=== PATIENT | female | born 1995 ===

== ENCOUNTER 2017-02-21 14:19 | Emergency (ER) | payer OTHER ==
[2017-02-21 14:19] VITALS: BMI 19.1
[2017-02-21 14:32] VITALS: BP 106/69; PULSE 80; RESP 16; TEMP 98.3; O2SAT 100
--- NOTE | 2017-02-21 15:15 | C.PDOC ---
History Of Present Illness Suellen Silva is a 22 year old female who presents to the emergency department for suture removal to the left wrist after an accidental laceration washing dishes on 03/16/17. Patient denies any fever, chills, nausea or vomit. No further medical complaints. PMD: None provided. Time Seen by Provider: 02/21/17 15:00 Chief Complaint (Nursing): Suture/Staple Removal History Per: Patient History/Exam Limitations: no limitations Onset/Duration Of Symptoms: Days (x1 week) Current Symptoms Are (Timing): Still Present Location Of Injury: Left: Wrist Past Medical History Reviewed: Historical Data, Nursing Documentation, Vital Signs Vital Signs: Last Vital Signs Temp 98.3 F 02/21/17 14:30 Pulse 80 02/21/17 14:30 Resp 16 02/21/17 14:30 BP 106/69 02/21/17 14:30 Pulse Ox 100 02/21/17 15:15 - Medical History PMH: Anemia Family History: States: Unknown Family Hx - Social History Hx Tobacco Use: No Hx Alcohol Use: Yes Hx Substance Use: No - Immunization History Hx Tetanus Toxoid Vaccination: Yes (4 yrs ago) Hx Influenza Vaccination: No Hx Pneumococcal Vaccination: No Review Of Systems Constitutional: Negative for: Fever, Chills Gastrointestinal: Negative for: Nausea, Vomiting Musculoskeletal: Positive for: Other (suture removal to the left wrist) Physical Exam - Physical Exam Appears: Well, No Acute Distress Skin: Normal Color, Warm, Dry Eye(s): bilateral: Normal Inspection Neck: Normal, Normal ROM, Supple Respiratory: Normal Breath Sounds Extremity: Normal ROM, Other (Left dorsal ventral wrist 5 cm laceration. Healed , clean, dry and intact. Neurovascular exam left hand normal) Neurological/Psych: Normal Speech, Normal Motor, Normal Sensation ED Course And Treatment O2 Sat by Pulse Oximetry: 100 (RA) Pulse Ox Interpretation: Normal Progress Note: 4 interrupted sutures removed from lac repair 03/16. nicely healed, normal distal neuromuscular exam. Disposition Doctor Will See Patient In The: Office Counseled Patient/Family Regarding: Studies Performed, Diagnosis - Disposition Referrals: [facility] [Outside] [facility] [employer] [facility] [Outside] Disposition: HOME/ ROUTINE Disposition Time: 15:14 Condition: GOOD Additional Instructions: continue daily soap and water cleansing. no further bandages after tomorrow 4 sutures removed. Instructions: Stitches Removal (ED) Forms: [employer] (Spanish) - Clinical Impression Clinical Impression: Removal of suture - Scribe Statement The provider has reviewed the documentation as recorded by the Alonaibbushra Lind Provider Attestation: All medical record entries made by the Alonaibe were at my direction and personally dictated by me. I have reviewed the chart and agree that the record accurately reflects my personal performance of the history, physical exam, medical decision making, and the department course for this patient. I have also personally directed, reviewed, and agree with the discharge instructions and disposition.
[2017-02-21] MEDS ORDERED: Bacitracin 500 Units/gm Oint Foilpak UD ONE (15:17)
== END 2017-02-21 15:19 | disposition home or self-care (01) ==
LOC: C.ER 14:19
DX: Z48.02 Encounter for removal of sutures (principal)

== ENCOUNTER 2017-07-21 11:13 | Emergency (ER) | payer BC ==
[2017-07-21 11:13] VITALS: BMI 19.1
[2017-07-21 11:33] VITALS: RESP 20; O2SAT 100
[2017-07-21 12:21] LABS: BASO % 0.3 % (0.0-2.0); EOS # 0.1 K/uL (0.0-0.7); EOS % 1.2 % (0.0-4.0); HEMOGLOBIN 12.2 g/dL (11.0-16.0); LYMPH # 1.7 K/uL (1.0-4.3); LYMPH % 22.8 % (20.0-40.0); MEAN CELL VOLUME 91.4 fL (81.0-99.0); MEAN CORPUSCULAR HEMOGLOBIN 31.2 pg (27.0-31.0); MEAN CORPUSCULAR HGB CONC 34.1 g/dL (33.0-37.0); MEAN PLATELET VOLUME 8.3 fL (7.2-11.7); MONO # 0.5 K/uL (0.0-0.8); MONO % 7.4 % (0.0-10.0); NEUT # 5.1 K/uL (1.8-7.0); NEUT % 68.3 % (50.0-75.0); RBC 3.9 Mil/uL (3.80-5.20); RED CELL DISTRIBUTION WIDTH 14.4 % (11.5-14.5); WHITE BLOOD COUNT 7.4 K/uL (4.8-10.8)
[2017-07-21 12:23] LABS: HCG,QUALITATIVE URINE POSITIVE (NEGATIVE)
[2017-07-21 12:28] LABS: SQUAMOUS EPITHIAL 1 /hpf (0-5); URINE BILIRUBIN NEGATIVE (NEGATIVE); URINE BLOOD NEGATIVE (NEGATIVE); URINE CLARITY Hazy (Clear); URINE COLOR Yellow (YELLOW); URINE GLUCOSE (UA) NORMAL (Normal); URINE LEUKOCYTE ESTERASE NEG Leu/uL (Negative); URINE NITRATE NEGATIVE (NEGATIVE); URINE PROTEIN NEGATIVE (NEGATIVE); URINE UROBILINOGEN NORMAL mg/dL (0.2-1.0)
--- NOTE | 2017-07-21 12:33 | C.PDOC ---
History Of Present Illness 22 y/o female, 16 weeks (), presents to the ER for evaluation of suprapubic heaviness and right flank pain which developed since yesterday. Patient states that the pain is intermittent and worse with movement and ambulation.Otherwise, patient denies fever, chills, recent illness, CP, SOB, dyspnea, diaphoresis, palpitation, vomiting, diarrhea, UTI symptoms , hematuria , vaginal bleeding or discharges. Ambulate to ED for evaluation, not in nay apparent distress. Pt admits, (+) care, no known complication during current . Time Seen by Provider: 07/21/17 11:31 Chief Complaint (Nursing): Abdominal Pain History Per: Patient History/Exam Limitations: no limitations Onset/Duration Of Symptoms: Days Severity: Moderate Associated Symptoms: denies: Fever, Chills, Vomiting, Diarrhea, Urinary Symptoms Past Medical History Reviewed: Historical Data, Nursing Documentation, Vital Signs Vital Signs: Last Vital Signs Temp 99.1 F 07/21/17 11:30 Pulse 97 H 07/21/17 11:30 Resp 20 07/21/17 11:30 BP 104/69 07/21/17 11:30 Pulse Ox 100 07/21/17 12:40 - Medical History PMH: Anemia Surgical History: No Surg Hx Family History: States: No Known Family Hx - Social History Hx Tobacco Use: No Hx Alcohol Use: No Hx Substance Use: No - Immunization History Hx Tetanus Toxoid Vaccination: Yes (4 yrs ago) Hx Influenza Vaccination: Yes (04/2017) Hx Pneumococcal Vaccination: No Review Of Systems Except As Marked, All Systems Reviewed And Found Negative. Constitutional: Negative for: Fever, Chills Gastrointestinal: Positive for: Abdominal Pain. Negative for: Vomiting, Diarrhea Genitourinary: Negative for: Dysuria, Hematuria, Vaginal Bleeding Physical Exam - Physical Exam Appears: Non-toxic, No Acute Distress Skin: Normal Color, Warm Head: Normacephalic Eye(s): bilateral: PERRL Nose: No Flaring, No Discharge Oral Mucosa: Moist Throat: No Erythema, No Drooling Neck: Trachea Midline, Supple Chest: Symmetrical Cardiovascular: Rhythm Regular, No Murmur, No JVD Respiratory: No Accessory Muscle Use, No Rales, No Rhonchi, No Stridor, No Wheezing Gastrointestinal/Abdominal: Soft, Tenderness (mild suprapubic tenderness), No Distention, No Guarding, No Rebound Back: No CVA Tenderness Extremity: Normal ROM, No Pedal Edema, No Deformity, No Swelling Neurological/Psych: Oriented x3, Normal Speech, Normal Motor, Normal Sensation ED Course And Treatment - Laboratory Results Result Diagrams: 07/21/17 12:11 Lab Interpretation: Normal Urine POC: Positive O2 Sat by Pulse Oximetry: 100 (RA) Pulse Ox Interpretation: Normal - CT Scan/US OB US Other Rad Studies (CT/US): Radiology Report Reviewed CT/US Interpretation: Findings: There is a single living fetus in breech presentation. Anterior placenta. The placenta is not previa. The right ovary measures approximately 3.3 x 2.0 x 2.6 cm. The left ovary measures approximately 4.4 x 1.5 x 3.6 cm. Blood flow is demonstrated to both ovaries. Cervix length measures approximately 3.4 cm. Measurements and calculations: Fetus has a composite sonographic age of 15 weeks 0 days. This calculation is based on the biparietal diameter, head circumference, abdominal circumference, and femur length. Estimated heart rate 132.3 beats per min. Impression: Single living fetus with a composite sonographic age of 15 weeks 0 days. Estimated heart rate 132.3 beats per min. The study was performed for the emergent evaluation of pain, and the whole anatomic survey of the fetus was not performed. Visualized anatomy appears grossly unremarkable. Advise an outpatient anomaly screen at 16-18 weeks gestational age. Progress Note: Labs and UA ordered. Transvaginal US ordered. Pt was OBS in ED for 3 hours and remained stable. On re-evalution, pt is afebrile, hemodynamicaly stable. Non-toxic. Neck: Supple, (-) JVD, (-) carotid bruits B/ L. ENT: No acute findings. Lungs: CTA B/L, BS equal B/L. CVS: (+)S1S2, reg. Abd: benign, (-) gaurding, (-) rebound. Back: (-) CVA tenderness. Blood work review and appears normal. UA- normal study. Blood type: O positive. US results review: anterior placenta, otherwise, no other acute findings. SIngle living fetus 15 wks. FHR 132/min. results review and discussed with patient. Pt have clinical findings c/w threatened miscarriage. Pt advised. Pt ref. to f /u with OB in 1-2 days for re-evaluation. Return to Ed if any worsening or new changes Disposition Counseled Patient/Family Regarding: Studies Performed, Diagnosis, Need For Followup - Disposition Referrals: Yadira Bond MD [Staff Provider] - Disposition: HOME/ ROUTINE Disposition Time: 14:04 Condition: STABLE Additional Instructions: Pelvic rest for 1 week, no sexual activity for 1 week Follow up with OB in 1-2 days for re-evaluation. Return to ED at any time if worsening of abdominal pain, vaginal bleeding or any other new changes. Instructions: Threatened Miscarriage Forms: [employer] (Wolof) - Clinical Impression Clinical Impression: Threatened miscarriage - PA / PHARMACY TECHNICIAN INFUSION / Resident Statement MD/DO has reviewed & agrees with the documentation as recorded. - Scribe Statement The provider has reviewed the documentation as recorded by the Scribe Marylu Monet Provider Attestation All medical record entries made by the Scribe were at my direction and personally dictated by me. I have reviewed the chart and agree that the record accurately reflects my personal performance of the history, physical exam, medical decision making, and the department course for this patient. I have also personally directed, reviewed, and agree with the discharge instructions and disposition.
--- NOTE | 2017-07-21 13:05 | US ---
Indication: Suprapubic pain Comparison: None available. Technique: Real-time ultrasound was performed through the pelvis. Findings: There is a single living fetus in breech presentation. Anterior placenta. The placenta is not previa. The right ovary measures approximately 3.3 x 2.0 x 2.6 cm. The left ovary measures approximately 4.4 x 1.5 x 3.6 cm. Blood flow is demonstrated to both ovaries. Cervix length measures approximately 3.4 cm. Measurements and calculations: Fetus has a composite sonographic age of 15 weeks 0 days. This calculation is based on the biparietal diameter, head circumference, abdominal circumference, and femur length. Estimated heart rate 132.3 beats per min. Impression: Single living fetus with a composite sonographic age of 15 weeks 0 days. Estimated heart rate 132.3 beats per min. The study was performed for the emergent evaluation of pain, and the whole anatomic survey of the fetus was not performed. Visualized anatomy appears grossly unremarkable. Advise an outpatient anomaly screen at 16-18 weeks gestational age.
[2017-07-21 15:25] VITALS: BP 98/56; PULSE 84; TEMP 98.2
== END 2017-07-21 15:24 | disposition home or self-care (01) ==
LOC: C.ER 11:13
DX: O20.0 Threatened abortion (principal); Z3A.15 15 weeks gestation of pregnancy

== ENCOUNTER 2017-10-23 00:48 | Emergency (ER) | payer SELFPAY ==
[2017-10-23] MEDS ORDERED: Lactated Ringer's 1,000 ML IV ONE (02:15)
--- NOTE | 2017-10-23 02:29 | OBHP ---
Datetime: 10/23/2017 02:17 IP Adm Impression: , intrauterine IP Admit Plan: Observation/Evaluation Admit Comment, IP Provider: 22yo edc 01/07 by lmp _ 1st trim us presents w/ c/o yellowish dis charge per vagina, vaginal and pelvic pressure, abd tightness _ back pain x2 2days. Last episode of c oitus 3days ago. pt denies srom, vag bleeding or decreased fm. pt see Dr Bond but because insuran ce issues has not seen her in 8wks. pmhx_ pshx: denies nkda medic: pnv shc: denies tobacco,etoh, or durg use i: 29.1wk vulvovaginal candidiasis p: ua ivf hydration pt may take monistat 7 f/u for visit ruben Pelvic Type - PN: Adequate Extremities - PN: Normal Abdomen - PN: Normal Back - PN: Normal Lungs - PN: Normal Heart - PN: Normal Neurologic - PN: Normal HEENT - PN: Normal General - PN: Normal FHR - Baseline A Provider: 130 Membranes, Provider: Intact Comments, ACOG Physical Exam: sse: yellowcurd dc Pool Provider: Negative Nitrazine Provider: Negative EGA AdmitDate IP: 29.1 IP Chief Complaint: Maternal discomfort; Other NICHD Variability Prov Fetus A: Moderate 6-25bpm NICHD Accel Fetus A IP Provider: 15X15 FHR Category Provider Fetus A: Category I Dilatation, Provider: 0 Effacement, Provider: 0 Station, Provider: high Genitourinary Exam: Normal
[2017-10-23 03:12] LABS: SQUAMOUS EPITHIAL 1 /hpf (0-5); URINE AMORPHOUS SEDIMENT OCC /ul (<OCC); URINE BILIRUBIN NEGATIVE (NEGATIVE); URINE BLOOD NEGATIVE (NEGATIVE); URINE CLARITY Hazy (Clear); URINE COLOR Yellow (YELLOW); URINE GLUCOSE (UA) NORMAL (Normal); URINE LEUKOCYTE ESTERASE TRACE Leu/uL (Negative); URINE PROTEIN NEGATIVE (NEGATIVE); URINE UROBILINOGEN NORMAL mg/dL (0.2-1.0)
[2017-10-23 07:20] VITALS: BP 90/49; PULSE 62
== END 2017-10-23 03:18 | disposition home or self-care (01) ==
LOC: C.EROB 00:48
DX: O98.813 Other maternal infectious and parasitic diseases complicating pregnancy, third trimester (principal); B37.3 Candidiasis of vulva and vagina; Z3A.29 29 weeks gestation of pregnancy
CPT/HCPCS: 81001; 99283; J7120

== ENCOUNTER 2017-12-31 05:06 | Inpatient (IN) | payer MEDICAID, OTHER ==
--- NOTE | 2017-12-31 07:19 | OBHP ---
Datetime: 12/31/2017 07:15 IP Adm Impression: Term, intrauterine IP Admit Plan: Initiate labor induction protocol Admit Comment, IP Provider: 21 y/o at 39 wks for induction of labor. Pt has no complaints today . Pt will be admitted to Dr Smith service for IOL. Pelvic Type - PN: Adequate Extremities - PN: Normal Abdomen - PN: Normal Back - PN: Normal Breast - PN: Normal Lungs - PN: Normal Heart - PN: Normal Thyroid - PN: Normal Neurologic - PN: Normal HEENT - PN: Normal General - PN: Normal FHR - Baseline A Provider: 130 Membranes, Provider: Ruptured EGA AdmitDate IP: 39.0 IP Chief Complaint: Scheduled induction of labor NICHD Variability Prov Fetus A: Minimal - Undetectable to <5bpm NICHD Accel Fetus A IP Provider: 15X15 NICHD Decel Fetus A IP Provider: None Genitourinary Exam: Normal DTRs - PN: Normal Datetime: 10/23/2017 02:17 Contraction Comments Provider: no
[2017-12-31] MEDS: Lactated Ringer's 1,000 ML IV SCH (08:00)
--- NOTE | 2017-12-31 08:09 | OBADHP ---
Datetime: 12/31/2017 07:15 Admit Comment, IP Provider: 21 y/o at 39 wks for induction of labor. c/o ctxs irrg, no vb,no lo f,+fm obhx orimi pmh de med pnv all nkda psh de soch ve 2-3/70/-2 a/p at 39weeks in early labor admit to l_d npo/ivf labs cont marcela and efm cytotec anticipate Pelvic Type - PN: Adequate Extremities - PN: Normal Abdomen - PN: Normal Back - PN: Normal Breast - PN: Normal Lungs - PN: Normal Heart - PN: Normal Thyroid - PN: Normal Neurologic - PN: Normal HEENT - PN: Normal General - PN: Normal FHR - Baseline A Provider: 130 Membranes, Provider: Ruptured IP Hx Assessment: The History has been Reviewed and is Current IP Chief Complaint: Uterine contractions; Scheduled induction of labor NICHD Variability Prov Fetus A: Minimal - Undetectable to <5bpm NICHD Accel Fetus A IP Provider: 15X15 NICHD Decel Fetus A IP Provider: None Genitourinary Exam: Normal DTRs - PN: Normal EGA AdmitDate IP: 39.0 IP Adm Impression: Term, intrauterine IP Admit Plan: Admit to unit; Initiate labor induction protocol Datetime: 10/23/2017 02:17 Contraction Comments Provider: no Comments, ACOG Physical Exam: sse: yellowcurd dc Pool Provider: Negative Nitrazine Provider: Negative FHR Category Provider Fetus A: Category I Dilatation, Provider: 0 Effacement, Provider: 0 Station, Provider: high
[2017-12-31 08:57] LABS: BASO % 0.2 % (0.0-2.0); EOS # 0.1 K/uL (0.0-0.7); HEMOGLOBIN 12.2 g/dL (11.0-16.0); LYMPH # 1.7 K/uL (1.0-4.3); LYMPH % 22.1 % (20.0-40.0); MEAN CELL VOLUME 91.6 fL (81.0-99.0); MEAN CORPUSCULAR HEMOGLOBIN 31.5 pg (27.0-31.0); MEAN CORPUSCULAR HGB CONC 34.4 g/dL (33.0-37.0); MEAN PLATELET VOLUME 9.7 fL (7.2-11.7); MONO # 0.7 K/uL (0.0-0.8); MONO % 9.4 % (0.0-10.0); NEUT # 5.3 K/uL (1.8-7.0); NEUT % 67.3 % (50.0-75.0); NRBC % 0.1 % (0.0-2.0); RBC 3.87 Mil/uL (3.80-5.20); RED CELL DISTRIBUTION WIDTH 12.4 % (11.5-14.5); WHITE BLOOD COUNT 7.9 K/uL (4.8-10.8)
[2017-12-31] MEDS ORDERED: Oxytocin 30 UNIT 30 UNITS/500 ML BAG IV ONE ×2 (12:55→19:46)
[2017-12-31] MEDS ORDERED: Oxytocin 30 UNIT 30 UNITS/500 ML BAG IV SCH (13:00)
--- NOTE | 2017-12-31 13:10 | OBPN ---
Datetime: 12/31/2017 13:06 IP Progress Impression: Normal progression of labor IP Procedures: Artificial ROM; Sterile Vag Exam IP Progress Plan: Continue present management FHR - Baseline A Provider: 130 IP Progress Note Comment: p was examined at bed side ve /2 srom cont piocin anicipate NICHD Accel Fetus A IP Provider: 15X15 FHR Category Provider Fetus A: Category I NICHD Variability Prov Fetus A: Moderate 6-25bpm Dilatation, Provider: 4 Effacement, Provider: 70 Station, Provider: -2 Datetime: 12/31/2017 07:15 Membranes, Provider: Ruptured NICHD Decel Fetus A IP Provider: None Datetime: 10/23/2017 02:17 Pool Provider: Negative Nitrazine Provider: Negative Contraction Comments Provider: no
[2017-12-31] MEDS ORDERED: Bupivacaine HCl/FentaNYL Cit 100 ML EPI ONE (14:00)
[2017-12-31] MEDS ORDERED: Lidocaine 2% MPF (5 ml) Inj ONE ×2 (19:39→19:40)
[2017-12-31] MEDS ORDERED: Benzocaine/Menthol 20%-0.5% Topical Spray (60 ml) TOP PRN (19:46)
[2017-12-31] MEDS ORDERED: Oxycodone/Acetaminophen 5/325 mg Tab PO PRN (19:46)
[2017-12-31] MEDS ORDERED: Tdap Vaccine 0.5 ml Vial (10-64 yrs) IM ONE (19:50)
--- NOTE | 2017-12-31 19:52 | OBPN ---
Datetime: 12/31/2017 19:49 IP Progress Impression: Normal progression of labor IP Procedures: Sterile Vag Exam FHR - Baseline A Provider: 130 IP Progress Note Comment: pt was sen at bed side ve fd/100/+1 stsrt pushing anticipate Vital Signs Provider: Reviewed; Within Normal Limits NICHD Accel Fetus A IP Provider: 15X15 FHR Category Provider Fetus A: Category I NICHD Variability Prov Fetus A: Moderate 6-25bpm Dilatation, Provider: 10 Effacement, Provider: 100 Station, Provider: 2
[2017-12-31] MEDS: Oxycodone/Acetaminophen 5/325 mg Tab PO PRN (23:12)
[2018-01-01] MEDS: Lactated Ringer's 1,000 ML IV SCH (00:58)
--- NOTE | 2018-01-01 06:38 | OBPPN ---
Datetime: 01/01/2018 06:37 PP Pain Prov: Within normal limits PP Nausea Prov: Denies PP Flatus Prov: Yes PP Abdomen/Uterus Prov: Normal PP Lochia Prov: Normal PP Extremities Prov: Normal PP Progress Note Prov: pt was seen at bed side, pain under control,no n/v, toleratimg dei,voiding,mi n lochia, flatus+ ppd#1 s/p cont pnc cont paim cot pp care Vital Signs Provider PP: Reviewed; Within Normal Limits
[2018-01-01] MEDS: Oxycodone/Acetaminophen 5/325 mg Tab PO PRN (18:18)
[2018-01-01 21:28] LABS: BASO % 0.3 % (0.0-2.0); EOS # 0.1 K/uL (0.0-0.7); EOS % 1.1 % (0.0-4.0); HEMOGLOBIN 11.5 g/dL (11.0-16.0); LYMPH # 3.3 K/uL (1.0-4.3); LYMPH % 28.5 % (20.0-40.0); MEAN CELL VOLUME 91.5 fL (81.0-99.0); MEAN CORPUSCULAR HGB CONC 33.8 g/dL (33.0-37.0); MEAN PLATELET VOLUME 9.1 fL (7.2-11.7); MONO % 8.8 % (0.0-10.0); NEUT % 61.3 % (50.0-75.0); NRBC % 0.2 % (0.0-2.0); RBC 3.73 Mil/uL (3.80-5.20); RED CELL DISTRIBUTION WIDTH 12.6 % (11.5-14.5); WHITE BLOOD COUNT 11.4 K/uL (4.8-10.8)
[2018-01-02 00:35] VITALS: PULSE 70
[2018-01-02 08:07] VITALS: BP 98/66; RESP 18; TEMP 97.1; O2SAT 100
--- NOTE | 2018-01-02 10:49 | CP.PCM.DIS ---
Provider - Provider Date of Admission: 12/31/17 06:43 Attending physician: Zachary Smith MD Time Spent in preparation of Discharge (in minutes): 45 Hospital Course - Lab Results Lab Results: Most Recent Lab Values WBC 11.4 K/uL (4.8-10.8) H 01/01/18 21: RBC 3.73 Mil/uL (3.80-5.20) L 01/01/18 21: Hgb 11.5 g/dL (11.0-16.0) 01/01/18 21: Hct 34.1 % (34.0-47.0) 01/01/18 21: MCV 91.5 fL (81.0-99.0) 01/01/18: MCH 31.0 pg (27.0-31.0) 01/01/18 21: MCHC 33.8 g/dL (33.0-37.0) 01/01/18: RDW 12.6 % (11.5-14.5) 01/01/18: Plt Count 231 K/uL (130-400) 01/01/18 21: MPV 9.1 fL (7.2-11.7) 01/01/18 21: Neut % (Auto) 61.3 % (50.0-75.0) 01/01/18 21: Lymph % (Auto) 28.5 % (20.0-40.0) 01/01/18 21: [place] % (Auto) 8.8 % (0.0-10.0) 01/01/18: Eos % (Auto) 1.1 % (0.0-4.0) 01/01/18 21: Baso % (Auto) 0.3 % (0.0-2.0) 01/01/18: Neut # (Auto) 7.0 K/uL (1.8-7.0) 01/01/18: Lymph # (Auto) 3.3 K/uL (1.0-4.3) 01/01/18 21: [place] # (Auto) 1.0 K/uL (0.0-0.8) H 01/01/18 21: Eos # (Auto) 0.1 K/uL (0.0-0.7) 01/01/18 21:22 Baso # (Auto) 0.0 K/uL (0.0-0.2) 01/01/18 21:22 RPR Nonreactive (NONREACTIVE) 12/31/17 08:48 HIV 1&2 Antibody Screen Negative (NEGATIVE) 12/31/17 08:48 Blood Type O POSITIVE 12/31/17 08:48 Antibody Screen Negative 12/31/17 08:48 - Hospital Course Hospital Course: 21 yo who had presented at 39 weeks for induction of labor. She had no acute complaints upon admissions and was admitted to begin IOL. On 12/31 she had a with no complications. She is now stating that her pain is well managed with her current pain regimen and she is tolerating her diet. She is moving her bowel and is voiding without any burning. She is having improving lochia. She is interested in going home today and is in agreement with the discharge plan to go home. She is breast feeding and was informed to continue taking her vitamins. - Date & Time of H&P Date of H&P: 01/02/18 Time of H&P: 10:49 Discharge Exam - Head Exam Head Exam: ATRAUMATIC, NORMAL INSPECTION, NORMOCEPHALIC - Eye Exam Eye Exam: EOMI, Normal appearance, PERRL - Respiratory Exam Respiratory Exam: NORMAL BREATHING PATTERN. absent: Accessory Muscle Use, Rales , Rhonchi - Cardiovascular Exam Cardiovascular Exam: +S1, +S2 - GI/Abdominal Exam GI & Abdominal Exam: Normal Bowel Sounds. absent: Distended, Firm, Guarding, Hernia - Neurological Exam Neurological exam: Alert, Oriented x3 - Psychiatric Exam Psychiatric exam: Normal Affect, Normal Mood Discharge Plan - Follow Up Plan Condition: GOOD Disposition: HOME/ ROUTINE Additional Instructions: - Please f/u with Dr. Smith in 3 weeks - No sex, and nothing inserted into vagina for 6 weeks - Please take pain medications as directed for pain as needed. - Please continue pre- vitamins - No heavy lifting for 6 weeks
[2018-01-02] MEDS ORDERED: Tdap Vaccine 0.5 ml Vial (10-64 yrs) IM ONE (13:15)
== END 2018-01-02 14:00 | disposition home or self-care (01) | DRG 373 ==
LOC: C.EROB 05:06 → C.4D 06:43 → C.4M 21:10
PROVIDERS: ADMIT Obstetrics & Gynecology; ATTEND Obstetrics & Gynecology
PROC: 10E0XZZ Delivery of Products of Conception, External Approach (ICD-10-PCS; principal; 2017-12-31)
PROC: 10907ZC Drainage of Amniotic Fluid, Therapeutic from Products of Conception, Via Natural or Artificial Opening (ICD-10-PCS; 2017-12-31)
PROC: 3E0P7VZ Introduction of Hormone into Female Reproductive, Via Natural or Artificial Opening (ICD-10-PCS; 2017-12-31)
DX: O80 Encounter for full-term uncomplicated delivery (principal); Z3A.39 39 weeks gestation of pregnancy; Z37.0 Single live birth

== ENCOUNTER 2018-08-01 10:07 | Emergency (ER) | payer OTHER ==
[2018-08-01 10:11] VITALS: BMI 19.3
[2018-08-01 10:14] VITALS: BP 98/67; PULSE 87; RESP 18; TEMP 97.5; O2SAT 99
--- NOTE | 2018-08-01 10:34 | C.PDOC ---
History Of Present Illness 23 y/o female, with history of carpal tunnel, presents with left wrist pain that started 2 weeks ago. Patient notes that pain radiates down her left hand from her wrist and feels like a tingling sensation. She states it is somewhat similar to her previous carpal tunnel for which she was given a splint but lost her splint recently. Patient reports she has been taking care of her baby and has had some wrist pain. She denies trauma, fall, neck pain, neck stiffness, numbness, or rash. Patient denies any family history of autoimmune disease or joint issues. Notes she took some Advil with some relief but no full resolution. Also denies fever, chills, chest pain, SOB, or other complaints. Time Seen by Provider: 08/01/18 10:15 Chief Complaint (Nursing): Finger,Hand,&Wrist History Per: Patient History/Exam Limitations: no limitations Onset/Duration Of Symptoms: Days Current Symptoms Are (Timing): Still Present Past Medical History Reviewed: Historical Data, Nursing Documentation, Vital Signs Vital Signs: Last Vital Signs Temp 97.5 F L 08/01/18 10:11 Pulse 87 08/01/18 10:11 Resp 18 08/01/18 10:11 BP 98/67 L 08/01/18 10:11 Pulse Ox 99 08/01/18 10:11 - Medical History PMH: Anemia Denies: Depression, Diabetes, HTN - [facility] Procedures (12/31/17) DELIVERY OF PRODUCTS OF CONCEPTION, EXTERNAL APPROACH (12/31/17) DRAINAGE OF AMNIOTIC FL, THERAP FROM POC, VIA OPENING (12/31/17) Family History: States: No Known Family Hx - Social History Hx Tobacco Use: No Hx Alcohol Use: No Hx Substance Use: No - Immunization History Hx Tetanus Toxoid Vaccination: No Hx Influenza Vaccination: Yes Hx Pneumococcal Vaccination: No Review Of Systems Constitutional: Negative for: Fever, Chills Eyes: Negative for: Pain, Vision Change, Conjunctivae Inflammation ENT: Negative for: Ear Pain Cardiovascular: Negative for: Chest Pain, Palpitations Respiratory: Negative for: Cough, Shortness of Breath, Hemoptysis, SOB with Excertion, Pleuritic Pain Gastrointestinal: Negative for: Nausea, Vomiting, Abdominal Pain, Melena Genitourinary: Negative for: Dysuria, Frequency, Incontinence, Hematuria, Vaginal Discharge, Vaginal Bleeding, Pelvic Pain, Rash Musculoskeletal: Positive for: Other (Left Wrist Pain). Negative for: Neck Pain (or neck stiffness), Shoulder Pain, Back Pain, Leg Pain, Foot Pain Skin: Negative for: Rash Neurological: Negative for: Numbness, Headache Physical Exam - Physical Exam Appears: Well, Non-toxic, No Acute Distress Skin: Warm, Dry Head: Atraumatic, Normacephalic Eye(s): bilateral: Normal Inspection, PERRL, EOMI Nose: Normal Oral Mucosa: Moist Tongue: Normal Appearing Lips: Normal Appearing Teeth: Normal Dentition Gingiva: Normal Appearing Throat: Normal, No Erythema, No Exudate Neck: Normal, Normal ROM, Trachea Midline, Supple, Other (no meningeal signs) Chest: Symmetrical Cardiovascular: Rhythm Regular, No Friction Rub, No Murmur Respiratory: Normal Breath Sounds, No Rales, No Rhonchi, No Wheezing Gastrointestinal/Abdominal: Normal Exam, Soft, No Tenderness, No Mass, No Distention, No Guarding Back: Normal Inspection, No CVA Tenderness, No Vertebral Tenderness Extremity: Normal ROM (Good ROM of left wrist), No Pedal Edema, No Deformity, No Swelling, Other (Left wrist: Neurovascularly intact, good cap refill distally, positive for tinel tap sign for carpal tunnel. R wrist normal) Extremity: Bilateral: Atraumatic, Normal Color And Temperature (no erythema or underlying edema) Pulses: Left Radial: Normal, Right Radial: Normal Neurological/Psych: Oriented x3, Normal Speech, Normal Cognition, Normal Motor Gait: Steady ED Course And Treatment O2 Sat by Pulse Oximetry: 99 (RA) Pulse Ox Interpretation: Normal Medical Decision Making Medical Decision Makin23 y/o female, with history of carpal tunnel, presents with left wrist pain that started 2 weeks ago. Likely Carpel tunnel given hx of carpel tunnel and similar pain. No fall or trauma hx. No neck pain or stiffness. No fever, chills or night sweats. Wrist w/ out erythema or crepitus. No obvious signs of abl. +tinels. No shoulder elbow pain. No other pain in any other extremity. No snuffbox pain. Carpal tunnel vs Wrist strain Plan: --POC 1148 poc negative, pending imaging 1239 Remains in NAD XRay unremarkable per my read splint placed, good n/v status post placement clear for d/c home with return indications and f/u Disposition - Disposition Referrals: Yuniel Bennett MD [Staff Provider] - [id number] [Outside] [facility] [Outside] [facility] [Outside] [facility] [Outside] Disposition: HOME/ ROUTINE Disposition Time: 12:40 Condition: STABLE Additional Instructions: LEENA HUNG, thank you for letting us take care of you today. Your provider was Bryan Duval and you were treated for WRIST/HAND PAIN. The emergency medical care you received today was directed at your acute symptoms. If you were prescribed any medication, please fill it and take as directed. It may take several days for your symptoms to resolve. Return to the Emergency Department if your symptoms worsen, do not improve, or if you have any other problems. Please contact your doctor or call one of the physicians/clinics you have been referred to that are listed on the Patient Visit Information form that is included in your discharge packet. Bring any paperwork you were given at discharge with you along with any medications you are taking to your follow up visit. Our treatment cannot replace ongoing medical care by a primary care provider outside of the emergency department. Thank you for allowing the [facility] team to be part of your care today. If you had an X-Ray or CT scan: A Radiologist will review the ED reading if any change in treatment is needed we will contact you. If you had a blood, urine, or wound culture: It will take several days for the results, if any change in treatment is needed we will contact you. If you had an STI test: It will take 48 hours for the results. Please call after 1 week if you have not heard back. Instructions: Carpal Tunnel Syndrome (DC) Forms: [id number] (American) - Clinical Impression Clinical Impression: Carpal tunnel syndrome of left wrist, Wrist pain, left - Scribe Statement The provider has reviewed the documentation as recorded by the Alonaibbushra Fenton Provider Attestation: All medical record entries made by the Scribe were at my direction and personally dictated by me. I have reviewed the chart and agree that the record accurately reflects my personal performance of the history, physical exam, medical decision making, and the department course for this patient. I have also personally directed, reviewed, and agree with the discharge instructions and disposition.
--- NOTE | 2018-08-01 12:52 | RAD ---
Left wrist four views HISTORY: Wrist pain. Comparison: None available. Findings: No evidence of acute displaced fracture or dislocation. Mild negative ulnar variance. Impression: No evidence of acute displaced fracture or dislocation. Mild negative ulnar variance. If pain persists, consider MRI.
== END 2018-08-01 12:43 | disposition home or self-care (01) ==
LOC: C.ER 10:07
DX: G56.02 Carpal tunnel syndrome, left upper limb (principal); M25.532 Pain in left wrist